=== PATIENT | male | born 1985 | race Two or more races ===

== ENCOUNTER 2024-02-09 07:35 | Emergency (ER) | payer MEDICAID, SELFPAY ==
[2024-02-09] VITALS (7 sets, daily range): BP systolic 116–130; BP diastolic 70–104; PULSE 91–128; RESP 16–28; TEMP 36.9–37.2; O2SAT 94–99; BMI 39.0
--- NOTE | 2024-02-09 07:43 | EKG_ITS ---
[facility] Test Date: 2024-02-09 Pat Name: WARREN ZULUAGA Department: Room: - Gender: Male Field Technician: : 1985 Requested By: ED Temporary Provider Order Number: [id number] Reading MD: ED Temporary Provider Measurements Intervals [place] Rate: 96 P: 30 MA: 165 QRS: 30 QRSD: 99 T: 40 QT: 354 QTc: 448 Interpretive Statements SINUS RHYTHM Compared to ECG 12/06/2021 10:53:56 No significant changes /store/S0/[id number]/ecg/[id number].pdf
--- NOTE | 2024-02-09 08:34 | PC.NURSE ---
PATIENT BIBA FROM HOME FOR FOR SEIZURES X 2 LASTING ABOUT 2 MIN PER ROOMMATE WHO FOUND HIM ON THE COUCH. PER EMS PATIENT WAS POST-ICTAL, A&O X 0, GCS 13, AND MISSED TAKING SEIZURE MED THIS WEEK. NKA WITH HX SEIZURES AND DIABETES. PATIENT IS RESTLESS AND CONTINUALLY COMPLAINING ABOUT HEADACHE.
[2024-02-09 09:02] LABS: Collection Type, Urine Clean Catch; RBC,Urine 0 /hpf (0-3); Squamous Epithelial Cell,Urine 0 /hpf (0-5)
[2024-02-09 09:03] LABS: Lactate (Lactic Acid) 5.3 mMol/L (0.4-2.0)
[2024-02-09 09:05] LABS: Basophils # (Auto) 0.1 Thou/mm3 (0.0-0.2); Basophils % (Auto) 0 % (0-2.5); Eosinophils # (Auto) 0.1 Thou/mm3 (0.0-0.5); Eosinophils % (Auto) 0 % (0-10); Hemoglobin 16.8 g/dL (13.5-16.0); Immature Granulocytes % (Auto) 1 % (0-0); Immature Granulocytes Auto 0.18 Thou/mm3 (0.00-0.00); Lymphocytes % (Auto) 5 % (10-50); Mean Corpuscular HGB Conc 34.3 g/dl (31.0-37.0); Mean Corpuscular Hemoglobin 29.8 pg (25.0-35.0); Mean Corpuscular Volume 87 fL (80-100); Monocytes % (Auto) 5 % (0-12); Neutrophils # (Auto) 18.2 Thou/mm3 (1.8-7.7); Neutrophils % (Auto) 89 % (37-80); Nucleated Red Blood Cell % 0 /100 WBC (0); Platelet Count 225 Thou/mm3 (140-440); RDW Standard Deviation 39.7 fL (35.1-43.9); Red Blood Count 5.64 Miln/mm3 (4.50-5.90); White Blood Count 20.5 Thou/mm3 (3.8-10.6)
--- NOTE | 2024-02-09 09:18 | EDNOTE_ITS ---
ED Seizures RME/HPI General Chief Complaint: Seizure Stated Complaint: POST SEIZURE Time Seen by Provider: 02/09/24 08:18 Arrival date/time: 02/09/24 07:35 RME / HPI RME / HPI Narrative: 38-year-old male with history of diabetes and seizures on Keppra presents to the emergency department with his mother after witnessed seizure. Mother reports patient had two seizures back to back lasting ~ 2 minutes. Mother states that he has been off his medications for an unknown known amount of time. She does not believe that he overdosed on any drugs and does not actively use IV drug. No documented trauma. Related Data Home Medications ?Medication ?Instructions ?Recorded ?Confirmed levetiracetam 750 mg tablet 1,500 mg PO BID 10/30/18 09/05/23 (Keppra) zonisamide 100 mg capsule 500 mg PO QDAY 04/22/21 09/05/23 lacosamide 200 mg tablet 1 tab PO DAILY 12/06/21 02/09/24 metformin 1,000 mg tablet 1 tab PO BID 12/06/21 09/05/23 Previous Rx's ?Medication ?Instructions ?Recorded ibuprofen 600 mg tablet 600 mg PO Q8H PRN pain #14 tabs 09/05/23 tamsulosin 0.4 mg capsule 0.4 mg PO QDAY #7 caps 09/05/23 Allergies Allergy/AdvReac Type Severity Reaction Status Date / Time acyclovir Allergy Severe Swelling Verified 09/05/23 12:03 pineapple Allergy Severe TONGUE Verified 09/05/23 12:03 SWELLING phenytoin Allergy Unknown UNKNOWN Verified 09/05/23 12:03 lorazepam AdvReac Mild Blister Verified 09/05/23 12:03 Review of Systems Review of Systems Narrative Review of Systems: Gen: No fever, no chills, no weight loss EYES: No discharge, no visual changes, no pain HEENT: No ear pain, no congestion, no sore throat PULM: No shortness of breath, no cough, no congestion CV: No chest pain, no dyspnea on exertion, no palpitations GI: No nausea, no vomiting, no diarrhea, no pain, no constipation : No frequency, no urgency,? no dysuria Musc/skel: No joint pain, no back pain Skin: No rash. Neuro: No weakness, no headache, +seizure Past Medical History Past Medical History NEUROLOGIC: Positive Neurological Disorders, Seizures and Epilepsy CARDIAC: Positive Hypercholesterolemia and Hypertension GENITOURINARY: Positive Kidney Stones ENDOCRINE: Positive Endocrine Disorders and Diabetes Mellitus Type 2 PSYCHO/SOCIAL: Positive Behavior Problems Social History SMOKING STATUS: Never smoker SUBSTANCE USE: marijuana (daily) ED Exam General General appearance: Present other (Patient lying in the bed, lying on his side. Able to answer questions.) Head Head exam: Present atraumatic and other (Next no external bleeding from external ears); Absent normocephalic or normal inspection Eye Eye exam: Present PERRL and other (No eye movement) ENT ENT exam: Present normal exam Neck Neck exam: Present other (Neck is supple) Chest Chest inspection: Present normal inspection and other (Nontender to touch) Respiratory Respiratory exam: Present normal lung sounds bilaterally; Absent respiratory distress, wheezes, stridor or accessory muscle use Cardiovascular Cardiovascular exam: Present regular rate and tachycardia; Absent normal rhythm Neurological Exam Neurological exam: Present alert, CN II-XII intact (No facial droop. No dysarthria. No aphasia following all commands) and other; Absent motor sensory deficit Skin Skin exam: Present warm, dry, intact and normal color; Absent rash Course Course Course Narrative: 1800: Patient was signed out to Dr. Bojorquez. Past medical, surgical, social and family history reviewed. Vitals and home medications reviewed. Results and treatment plan discussed. They will assume the care of the patient at this time and will follow the patient. Quality Measures none Orders Category Date Time Status EKG (ED ONLY) *Do not use* NOW Care 02/09/24 07:[address] head/brain wo con Stat Exams 02/09/24 10:06 Completed EKG (ED Only) Stat Exams 02/09/24 07:43 Draft CBC Stat Lab 02/09/24 08:20 Completed Comprehensive Metabolic Panel Stat Lab 02/09/24 08:20 Completed Drug Screen,Urine Stat Lab 02/09/24 08:20 Completed Lactate (Lactic Acid) Stat Lab 02/09/24 08:20 Completed Lactic Acid, 3 HR Stat Lab 02/09/24 12:13 Completed Urinalysis Stat Lab 02/09/24 08:20 Completed LORazepam [Ativan Inj] Med 02/09/24 09:59 Discontinued 1 mg IVP X1 ONE LORazepam [Ativan Inj] Med 02/09/24 09:49 Discontinued 2 mg .ROUTE .STK-MED ONE LORazepam [Ativan Inj] Med 02/09/24 09:52 Discontinued 2 mg IVP X1 ONE LORazepam [Ativan Inj] Med 02/09/24 09:58 Discontinued 2 mg IVP X1 ONE levETIRAcetam INJ [Keppra Inj] Med 02/09/24 09:52 Discontinued 1,000 mg IVP X1 ONE Reevaluation(s) Reevaluation #1: Patient began seizing, witnessed by myself and nursing staff. Was given a total of 3 mg of Ativan. Bedside glucose 179. Patient snoring loudly post seizure. Sister adds at baseline patient snored loudly at night. Time: 09:50 Vital Signs Vital signs: Vital Signs Temperature 98.4 F 02/09/24 07:53 Pulse Rate 107 H 02/09/24 07:53 Respiratory Rate 16 02/09/24 07:53 Blood Pressure 125/104 H 02/09/24 07:53 Pulse Oximetry (%) 95 02/09/24 07:53 Oxygen Delivery Method Room Air 02/09/24 07:53 Pulse ox is 95% on room air which is adequate. Seizure MDM Narrative MDM Narrative:: Differential diagnosis includes seizure disorder, noncompliance, dehydration, electrolyte abnormality, brain tumor, any other brain abnormality that may be exacerbating his seizure. On arrival to the emergency department the patient was lying on the side and talking to his sister. He was able to answer all questions to me. All labs ordered. At approximately 10 AM patient had a witnessed less than 2- minute tonic-clonic seizure. 3 mg of Ativan was given. No hypoxia. Patient is postictal. 1750: Patient is more awake however now reports that he is on multiple seizure medications. Patient with elevated lactate likely from seizure however on repeat is 4.0 after IV fluids. Pending callback from telemetry neuro for recommendations for further medication management. Discussed with the [facility] physician taking over Dr. Handy, who assumed care and final disposition of this patient. Patient data External records reviewed:: [facility] previous records (I reviewed previous ED visit on 11/10/2022 for seizure) and EMS form Clinical information provided by:: patient, EMS and family (Sister- adds to hpi ) Social determinants that could affect healthcare access:: none Patient has the following chronic illnesses:: Seizures, diabetes How is presenting disease/condition affected by chronic disease/condition?: exacerbated by Evaluation data The following diagnostics were reviewed and interpreted by me:: lab results, radiology exam(s) and EKG tracing(s) (Sinus rhythm, rate 96, no ST elevation or depression, normal intervals, QTc 408, no STEMI, no ischemia) Lab and/or radiology exams considered but not ordered:: None Interpretation Summary: Ordering Physician: Rosario Logan MD Date of Service: 02/09/24 Procedure(s): CT head/brain wo con Accession Number(s): [id number] cc: Tate Wilder MD; Dash Devine MD; Rosario Logan MD~ Examination: CT brain head without contrast. 2-D sagittal coronal reconstructions Date and time of exam:February 09, 2024 1022 hours INDICATIONS: Onset seizures today COMPARISON: 12/06/2021 CTDI: vol (mGy):61 DLP: (mGycm):1227 Technique: Multiple CT axial sections of the brain have been obtained, 5 mm slice thickness. Contrast has not been administered. 2-D sagittal, coronal reconstructions have been obtained Low dose protocols were performed. One or more of the following dose reduction techniques were used; automated exposure control, adjustment of the mA and/or KV according to patient size, use of iterative reconstruction technique. Findings: No significant ventricular enlargement. Old fracture medial wall right orbit Intra-axial or extra-axial hemorrhage density is not seen. No mass effect or midline shift Basal cisterns are not remarkable. Fourth ventricle is midline. Cranial vault intact. Impression: Negative for acute hemorrhage, mass effect or midline shift Consider elective brain MRI follow-up, pre and postcontrast, seizure protocol Dictated By: Dash Devine MD Signed By: <Electronically signed by Dash Devine MD in OV> 02/09/24 1103 Medications / Prescriptions Medications or Prescriptions considered but not ordered:: None Medication administrations:: Medication Administration History Discontinued Medications Levetiracetam (Levetiracetam Inj 100 Mg/Ml Vial 5ml) 1,000 mg IVP X1 ONE Stop: 02/09/24 09:53 Last Admin: 02/09/24 09:56 Dose: 1,000 mg Documented By: RD Lorazepam (Lorazepam 2 Mg/Ml Vial) 2 mg IVP X1 ONE Stop: 02/09/24 09:53 Last Admin: 02/09/24 09:54 Dose: 2 mg Documented By: ARPIT Lorazepam (Lorazepam 2 Mg/Ml Vial) Confirm Administered Dose 2 mg .ROUTE .STK- MED ONE Stop: 02/09/24 09:50 Last Admin: 02/09/24 10:00 Dose: Not Given Documented By: ARPIT Non-Admin Reason: Duplicate Medication on eMAR Lorazepam (Lorazepam 2 Mg/Ml Vial) 2 mg IVP X1 ONE Stop: 02/09/24 09:59 Last Admin: 02/09/24 10:00 Dose: Not Given Documented By: ARPIT Non-Admin Reason: Cancelled by Provider Lorazepam (Lorazepam 2 Mg/Ml Vial) 1 mg IVP X1 ONE Stop: 02/09/24 10:00 Last Admin: 02/09/24 10:01 Dose: 1 mg Documented By: ARPIT See above Consultations Consultation(s) initiated? (list below): No Diagnosis Seizure Differential Diagnosis: other (Seizure disorder, noncompliance, d ehydration, electrolyte abnormality, brain tumor) Most likely diagnosis given after review of the tests above:: Seizures Admission Indicated Admission indicated?: indicated Explain why admission is indicated or not indicated:: No final disposition plan at this time. Patient signout to the shift commander provider. Admission Request Was there a request for admission?: No Disposition Plan Disposition Plan: other (specify) (Patient signout to the shift commander provider.) Discharge Plan Plan Disposition Comment: Stable at signout Prescriptions/Referrals Prescriptions/Med Rec: No Action levetiracetam [Keppra] 750 mg Tablet 1,500 mg PO BID zonisamide 100 mg capsule 500 mg PO QDAY Patient Comments: take 3 capsules by mouth once daily metformin 1,000 mg tablet 1 tab PO BID Patient Comments: take 1 tablet by mouth twice a day WITH A MEAL lacosamide 200 mg tablet 1 tab PO DAILY Patient Comments: take 1 tablet by mouth twice a day tamsulosin 0.4 mg capsule 0.4 mg PO QDAY Qty: 7 0RF ibuprofen 600 mg tablet 600 mg PO Q8H PRN (Reason: pain) Qty: 14 0RF Referrals: Tate Wilder MD [Primary Care Provider] - In 1 week Problem List Clinical Impression: Non-compliance, Seizure disorder Patient/Caregiver Discharge Instructions Print Language: Yakut
[2024-02-09 09:30] LABS: Bilirubin,Urine Negative (Negative); Blood,Urine 2+ (Negative); Clarity,Urine Clear (Clear/Hazy); Glucose, Urine 3+ (Negative); Ketones,Urine Trace (Negative); Leukocyte Esterase,Urine Negative (Negative); Nitrite,Urine Negative (Negative); PH,Urine 5.5 (5.0-7.0); Protein,Urine 2+ (Neg - Trace); Specific Gravity,Urine 1.013 (1.001-1.035); Urobilinogen,Urine Negative mg/dL (0.0-1.0); WBC,Urine 2 /hpf (0-5)
[2024-02-09 09:31] LABS: Alanine Aminotransferase 59 U/L (10-49); Albumin, Serum 4.5 gm/dL (3.5-5.0); Albumin/Globulin Ratio 1.8 (1.2-2.2); Alkaline Phosphatase 108 U/L (46-116); Anion Gap 12 (7-16); Aspartate Amino Transferase 30 U/L (0-34); BUN/Creatinine Ratio 19 Ratio (12-20); Bilirubin,Total 0.3 mg/dL (0.3-1.2); Blood Urea Nitrogen 13 mg/dL (9-23); Calcium 9.2 mg/dL (8.3-10.6); Calcium (Corrected) 9.2 mg/dL (8.5-10.1); Carbon Dioxide 16.9 mMol/L (20.0-31.0); Chloride 108 mMol/L (98-107); Creatinine (Component) 0.7 mg/dL (0.6-1.3); Estimated Creatinine Clearance 190.4 mL/min (>60); Globulin 2.5 gm/dL (2.3-3.5); Glucose 202 mg/dL (74-106); Osmolality,Calculated 279 (275-295); Sodium 137 mMol/L (136-145); eGFR > 60 See Note
[2024-02-09 09:34] LABS: Amphetamine/Methamp Scrn,U Negative (Negative); Barbiturate Screen,Urine Negative (Negative); Benzodiazepines Screen,Urine Negative (Negative); Benzoylecgonine Screen, Ur Negative (Negative); Fentanyl Screen,Urine Negative (Negative); Opiate Screen,Urine Negative (Negative); THC Screen,Urine Positive (Negative)
[2024-02-09 09:37] LABS: Color,Urine Lt-Yellow (Lt Yel-Yel); Sperm,Urine Present
[2024-02-09] MEDS: LORazepam 2 MG/ML VIAL IVP (09:54)
[2024-02-09] MEDS: levETIRAcetam INJ 100 MG/ML VIAL 5ML 1000 MG IVP (09:56)
[2024-02-09] MEDS: LORazepam 2 MG/ML VIAL 1 MG IVP (10:01)
--- NOTE | 2024-02-09 10:06 | XR_ITS ---
Examination: CT brain head without contrast. 2-D sagittal coronal reconstructions Date and time of exam:February 09, 2024 1022 hours INDICATIONS: Onset seizures today COMPARISON: 12/06/2021 CTDI: vol (mGy):61 DLP: (mGycm):1227 Technique: Multiple CT axial sections of the brain have been obtained, 5 mm slice thickness. Contrast has not been administered. 2-D sagittal, coronal reconstructions have been obtained Low dose protocols were performed. One or more of the following dose reduction techniques were used; automated exposure control, adjustment of the mA and/or KV according to patient size, use of iterative reconstruction technique. Findings: No significant ventricular enlargement. Old fracture medial wall right orbit Intra-axial or extra-axial hemorrhage density is not seen. No mass effect or midline shift Basal cisterns are not remarkable. Fourth ventricle is midline. Cranial vault intact. Impression: Negative for acute hemorrhage, mass effect or midline shift Consider elective brain MRI follow-up, pre and postcontrast, seizure protocol
[2024-02-09 11:51] LABS: Reflex Lactate? Y
--- NOTE | 2024-02-09 18:34 | PD.EDADDENDU ---
Emergency Room Addendum <Radha Ramos - Last Filed: 02/09/24 19:22> Addendum Narrative: 1800: Care assumed from Dr. Logan, the previous shift emergency physician. Past medical, surgical, social and family history reviewed. Vitals and home medications reviewed. I will assume the care of the patient at this time. Please refer to the emergency department record for history and examination from initial visit.? Physical exam by me shows patient under no acute distress at this time. 1921: Patient remains clinically stable throughout the emergency department visit. Re-assessment at the time of disposition demonstrates that the patient is in no acute distress. We reviewed all the results, analysis, and treatment plans. Patient is amenable to discharge. Strict return precautions were outlined. Patient was discharged in stable condition. <Hank Bojorquez MD - Last Filed: 02/09/24 23:42> Addendum Narrative: 1800: Care assumed from Dr. Logan, the previous shift emergency physician. Past medical, surgical, social and family history reviewed. Vitals and home medications reviewed. I will assume the care of the patient at this time. Please refer to the emergency department record for history and examination from initial visit.? Patient remained stable, without further seizure-like activity. Patient has a normal neurologic exam on reevaluation. Patient is stable for discharge Physical exam by me shows patient under no acute distress at this time. 1921: Patient remains clinically stable throughout the emergency department visit. Re-assessment at the time of disposition demonstrates that the patient is in no acute distress. We reviewed all the results, analysis, and treatment plans. Patient is amenable to discharge. Strict return precautions were outlined. Patient was discharged in stable condition.
--- NOTE | 2024-02-09 18:45 | PC.NURSE ---
1000mg Tylenol administered to patient but unable to chart due to Dr. Damon still in chart.
[2024-02-09] MEDS: ACETAMINOPHEN 500 MG TABLET 1000 MG PO (19:14)
--- NOTE | 2024-02-09 19:15 | PC.NURSE ---
Assumed care of pt. Pt is tired but A&O x4, GCS 15, making good eye contact. Pt able to ambulate without assistance. No signs of distress at this time. Pt to be DC'd per MD.
== END 2024-02-09 19:55 | disposition home or self-care (01) ==
PROVIDERS: Emergency Medicine; Emergency Provider Emergency Medicine; PCP Family Medicine
DX: G40.909 Epilepsy, unspecified, not intractable, without status epilepticus (principal); Z91.199 Patient's noncompliance with other medical treatment and regimen due to unspecified reason; E78.00 Pure hypercholesterolemia, unspecified; I10 Essential (primary) hypertension
CPT/HCPCS: 36415; 70450; 80053; 80307; 81001; 83605; 85025; 93005; 96374; 96375; 99284; J1953; J2060; A9270

== ENCOUNTER 2024-05-17 09:14 | Emergency (ER) | payer MEDICAID, SELFPAY ==
[2024-05-17 09:16] VITALS: BP 123/79; PULSE 124; RESP 20; TEMP 37.2; O2SAT 95
[2024-05-17 09:17] VITALS: BMI 27.8
[2024-05-17 09:21] VITALS: BMI 34.9
--- NOTE | 2024-05-17 09:25 | PD.EDSEIZ ---
ED Seizures RME/HPI General Chief Complaint: Seizure Stated Complaint: SEIZURE Time Seen by Provider: 05/17/24 09:22 Arrival date/time: 05/17/24 09:14 RME / HPI RME / HPI Narrative: 38 year old male with history of seizures presents to the ED BIBA from home for seizure today. Per medics, seizure was witnessed by nephew and lasting ~ 1 minute. No falls or injuries reported. While in the ED patient complains of a headache which he states is normal for him. No other complaints or symptoms reported. Patient mentioned he is not compliant with his Keppra and last took last night. Denies fevers, chills, recent illness, cough. Related Data Home Medications ?Medication ?Instructions ?Recorded ?Confirmed levetiracetam 750 mg tablet 1,500 mg PO BID 10/30/18 09/05/23 (Keppra) zonisamide 100 mg capsule 500 mg PO QDAY 04/22/21 09/05/23 lacosamide 200 mg tablet 1 tab PO DAILY 12/06/21 02/09/24 metformin 1,000 mg tablet 1 tab PO BID 12/06/21 09/05/23 Previous Rx's ?Medication ?Instructions ?Recorded ibuprofen 600 mg tablet 600 mg PO Q8H PRN pain #14 tabs 09/05/23 tamsulosin 0.4 mg capsule 0.4 mg PO QDAY #7 caps 09/05/23 Allergies Allergy/AdvReac Type Severity Reaction Status Date / Time acyclovir Allergy Severe Swelling Verified 09/05/23 12:03 pineapple Allergy Severe TONGUE Verified 09/05/23 12:03 SWELLING phenytoin Allergy Unknown UNKNOWN Verified 09/05/23 12:03 lorazepam AdvReac Mild Blister Verified 09/05/23 12:03 Review of Systems Review of Systems Narrative Review of Systems: GEN: No fever, no chills, no weight loss EYES: No discharge, no visual changes, no pain HEENT: No ear pain, no congestion, no sore throat PULM: No shortness of breath, no cough, no congestion CV: No chest pain, no dyspnea on exertion, no palpitations GI: No nausea, no vomiting, no diarrhea, no pain, no constipation : No frequency, no urgency and no dysuria MUSC/SKEL No joint pain, no back pain SKIN: No rash PSYCH: No hallucinations, no depression HEME/LYMPH: No easy bleeding or bruising tendencies NEURO: No weakness, + headache, +seizure Past Medical History Past Medical History NEUROLOGIC: Positive Neurological Disorders, Seizures and Epilepsy CARDIAC: Positive Hypercholesterolemia and Hypertension GENITOURINARY: Positive Kidney Stones ENDOCRINE: Positive Endocrine Disorders and Diabetes Mellitus Type 2 PSYCHO/SOCIAL: Positive Behavior Problems Social History SMOKING STATUS: Never smoker SUBSTANCE USE: marijuana (daily) ED Exam Narrative Physical exam: GENERAL APPEARANCE: Well hydrated, well nourished, in no acute distress. VITALS: All vitals were reviewed and the pulse ox is 95% on room air which is normal according to my interpretation. HEENT: Normocephalic, atramatic, EOMI, EACs are patent. There is no bulge or retraction. Throat without erythema or exudate. Moist oromucosa. No jaundice NECK: Supple, no JVD or bruits. CARDIOVASCULAR: Heart regular without S3-S4 or murmur. No rubs or gallops. LUNGS/CHEST: Clear to auscultation bilaterally. No rales, rhonchi, or wheezing. Normal inspection. ABDOMEN: Soft, nontender, with normal bowel sounds. No pulsatile masses. No rebound, rigidity, or guarding. No incarcerated hernia. Normal inspection and palpation. EXTREMITIES: Normal inspection and palpation. No edema, clubbing, or cyanosis. Intact CSM SKIN: Warm and dry without rashes. Normal inspection. MUSCULOSKELETAL: Normal inspection. No gross deformity, full ROM all extremities NEURO: Alert and oriented x3. Cranial nerves II through XII grossly intact. There are no other motor or sensory deficits noted. PSYCHIATRIC: Normal mood and affect. No psychosis Course Quality Measures none Orders Category Date Time Status Saline [Insert IV] NOW Care 05/17/24 09:32 Active BMP [Basic Metabolic Panel] Stat Lab 05/17/24 10:07 Completed Drug Screen,Urine Stat Lab 05/17/24 15:04 Completed Acetaminophen Tab [Tylenol ES Tab] Med 05/17/24 09:31 Discontinued 1,000 mg PO X1 ONE Sodium Chloride 0.9% 1000 ml [Ns] 1,000 ml Med 05/17/24 16:41 Active IV 999 mls/hr levETIRAcetam INJ [Keppra Inj] Med 05/17/24 09:31 Discontinued 1,000 mg IVP X1 ONE levETIRAcetam INJ [Keppra Inj] Med 05/17/24 09:32 Discontinued 1,500 mg IVP X1 ONE Vital Signs Vital signs: Vital Signs Temperature 98.9 F 05/17/24 09:16 Pulse Rate 124 H 05/17/24 09:16 Respiratory Rate 20 05/17/24 09:16 Blood Pressure 123/79 05/17/24 09:16 Pulse Oximetry (%) 95 05/17/24 09:16 Oxygen Delivery Method Room Air 05/17/24 09:16 Seizure MDM Narrative MDM Narrative:: I, Valarie King, am scribing for and in the presence of Dr. Shin. BMP is showing a bicarb of 16 and BUN and creatinine are unremarkable. Anion gap is normal. Blood sugar is 213. Drug screen is positive for marijuana. 4:50 PM I put in an order for 1000 mL normal saline bolus for the acidosis bicarb being low. I believe this is just secondary to the dehydration there is no acute DKA. After the normal saline bolus, the patient can be going home. He is now alert awake oriented x 4 GCS of 15 and using his cellular phone contact his family members. He is talking well. No neurological deficit. No sign of trauma. Critical care time is approximately 35 minutes excluding any procedure. The high probability of sudden, clinically significant deterioration in the patient?s condition required the highest level of my preparedness to intervene urgently. The services I provided to this patient were to treat and/or prevent clinically significant deterioration. Services included the following: chart data review, reviewing nursing notes and/or old charts, documentation time, groundwater consultant collaboration regarding findings and treatment options, medication orders and management, direct patient care, vital sign assessments and ordering, interpreting and reviewing diagnostic studies and lab tests. Aggregate critical care time includes only time during which I was engaged in work directly related to the patient?s care, as described above, whether at bedside or elsewhere in the Emergency Department. It did not include time spent performing other reported procedures or the services of residents, students, nurses or physician assistants. Patient data External records reviewed:: [facility] previous records (I reviewed ED visit on 02/09/2024) and EMS form Clinical information provided by:: patient and EMS Social determinants that could affect healthcare access:: substance use (Marijuana ) Patient has the following chronic illnesses:: Seizures, noncompliance with medications How is presenting disease/condition affected by chronic disease/condition?: exacerbated by Evaluation data The following diagnostics were reviewed and interpreted by me:: lab results Lab and/or radiology exams considered but not ordered:: None Interpretation Summary: As noted above Medications / Prescriptions Medications or Prescriptions considered but not ordered:: None Medication administrations:: Medication Administration History Sodium Chloride (Ns) 1,000 mls @ 999 mls/hr IV .Q1H1M ONE Stop: 05/17/24 17:41 Discontinued Medications Acetaminophen (Acetaminophen 500 Mg Tablet) 1,000 mg PO X1 ONE Stop: 05/17/24 09:32 Last Admin: 05/17/24 09:47 Dose: 1,000 mg Documented By: ARPIT Levetiracetam (Levetiracetam Inj 100 Mg/Ml Vial 5ml) 1,000 mg IVP X1 ONE Stop: 05/17/24 09:32 Last Admin: 05/17/24 09:49 Dose: Not Given Documented By: ARPIT Non-Admin Reason: Cancelled by Provider Levetiracetam (Levetiracetam Inj 100 Mg/Ml Vial 5ml) 1,500 mg IVP X1 ONE Stop: 05/17/24 09:33 Last Admin: 05/17/24 09:49 Dose: 1,500 mg Documented By: ARPIT See above Consultations Consultation(s) initiated? (list below): No Diagnosis Seizure Differential Diagnosis: intractable seizure disorder, focal seizure, generalized seizure, epileptic seizure and status epilepticus Most likely diagnosis given after review of the tests above:: Seizure Admission Indicated Admission indicated?: not indicated Admission Request Was there a request for admission?: No Disposition Plan Disposition Plan: Discharge Discharge Attestation Discharge Attestation: The patient and all family members were given an opportunity to ask questions and understood the discharge instructions. Discharge instructions specifically effects, indications for sooner follow up or return to the emergency department, and the expected course of current diagnosis. Patient condition: Stable Discharge Plan Plan Patient Disposition: HOME (Self Care) Disposition Comment: Stable to go home Prescriptions/Referrals Prescriptions/Med Rec: No Action levetiracetam [Keppra] 750 mg Tablet 1,500 mg PO BID zonisamide 100 mg capsule 500 mg PO QDAY Patient Comments: take 3 capsules by mouth once daily metformin 1,000 mg tablet 1 tab PO BID Patient Comments: take 1 tablet by mouth twice a day WITH A MEAL lacosamide 200 mg tablet 1 tab PO DAILY Patient Comments: take 1 tablet by mouth twice a day tamsulosin 0.4 mg capsule 0.4 mg PO QDAY Qty: 7 0RF ibuprofen 600 mg tablet 600 mg PO Q8H PRN (Reason: pain) Qty: 14 0RF Referrals: Tate Wilder MD [Primary Care Provider] - In 1 week Problem List Clinical Impression: Recurrent seizures Patient/Caregiver Discharge Instructions Education Materials: ED Seizure, Recurrent (Adult) Additional Instructions: Caution: No driving. No diving. No ariana. No heavy equipments. Follow-up with your medical doctor for recheck and further care in 3 days. Return to nearest ER if condition worsens or if new symptoms develop. Continue your Keppra to prevent further seizure. Print Language: Bulgarian Stand Alone Forms: [facility] [facility] Info., Patient Portal Info Letter
[2024-05-17] MEDS: ACETAMINOPHEN 500 MG TABLET 1000 MG PO (09:47)
[2024-05-17] MEDS: levETIRAcetam INJ 100 MG/ML VIAL 5ML 1500 MG IVP (09:49)
[2024-05-17 10:14] VITALS: BP 122/84; PULSE 102; RESP 19; TEMP 36.7; O2SAT 93
[2024-05-17 10:28] LABS: Anion Gap 15 (7-16); BUN/Creatinine Ratio 14 Ratio (12-20); Blood Urea Nitrogen 13 mg/dL (9-23); Calcium 8.9 mg/dL (8.3-10.6); Carbon Dioxide 15.8 mMol/L (20.0-31.0); Chloride 108 mMol/L (98-107); Creatinine (Component) 0.9 mg/dL (0.6-1.3); Glucose 213 mg/dL (74-106); Osmolality,Calculated 283 (275-295); Potassium 3.8 mMol/L (3.4-5.1); Sodium 139 mMol/L (136-145); eGFR > 60 See Note
[2024-05-17 12:48] VITALS: BP 151/91; PULSE 73; RESP 17; TEMP 36.9; O2SAT 98
[2024-05-17 15:18] VITALS: BP 125/82; PULSE 69; RESP 17; TEMP 37.2; O2SAT 94
[2024-05-17 15:56] LABS: Amphetamine/Methamp Scrn,U Negative (Negative); Barbiturate Screen,Urine Negative (Negative); Benzodiazepines Screen,Urine Negative (Negative); Benzoylecgonine Screen, Ur Negative (Negative); Fentanyl Screen,Urine Negative (Negative); Opiate Screen,Urine Negative (Negative); THC Screen,Urine Positive (Negative)
[2024-05-17] MEDS: SODIUM CHLORIDE 0.9% 1000 ML 1,000 ML 999 ML IV (16:46)
[2024-05-17 17:18] VITALS: BP 132/82; PULSE 86; RESP 16; TEMP 37; O2SAT 98
== END 2024-05-17 18:10 | disposition home or self-care (01) ==
PROVIDERS: Emergency Provider Emergency Medicine; PCP Family Medicine
DX: G40.909 Epilepsy, unspecified, not intractable, without status epilepticus (principal)
CPT/HCPCS: 36415; 80048; 80307; 96361; 96374; 99284; J1953; J7030; A9270

== ENCOUNTER 2024-08-01 21:49 | Emergency (ER) | payer MEDICAID, SELFPAY ==
--- NOTE | 2024-08-01 21:50 | PD.EDSEIZ ---
ED Seizures RME/HPI General Chief Complaint: Seizure Stated Complaint: SEIZURES Time Seen by Provider: 08/01/24 21:53 Arrival date/time: 08/01/24 21:49 RME / HPI RME / HPI Narrative: Dr. Rashid?s Main ED Evaluation: 39yo male with a history of epilepsy BIBA from home presents to the ED for a chief complaint of seizures. Per EMS, patient had 4 seizures today, the last one being 20 minutes [employer]. Per EMS, sister noted the patient has been compliant with his medications. She endorsed to EMS that the patient does get agitated and combative after having a seizure. Full ROS is unobtainable due to the patient being uncooperative. At 2155, I spoke with the patient's sister, who states the patient is on Vimpat and metformin. Patient did take his medications today. Sister states she normally does not call EMS when the patient has seizures, but since she was not there, her nephew called 911. Related Data Home Medications ?Medication ?Instructions ?Recorded ?Confirmed levetiracetam 750 mg tablet 1,500 mg PO BID 10/30/18 09/05/23 (Keppra) zonisamide 100 mg capsule 500 mg PO QDAY 04/22/21 09/05/23 lacosamide 200 mg tablet 1 tab PO DAILY 12/06/21 02/09/24 metformin 1,000 mg tablet 1 tab PO BID 12/06/21 09/05/23 Previous Rx's ?Medication ?Instructions ?Recorded ibuprofen 600 mg tablet 600 mg PO Q8H PRN pain #14 tabs 09/05/23 tamsulosin 0.4 mg capsule 0.4 mg PO QDAY #7 caps 09/05/23 Allergies Allergy/AdvReac Type Severity Reaction Status Date / Time acyclovir Allergy Severe Swelling Verified 09/05/23 12:03 pineapple Allergy Severe TONGUE Verified 09/05/23 12:03 SWELLING phenytoin Allergy Unknown UNKNOWN Verified 09/05/23 12:03 lorazepam AdvReac Mild Blister Verified 09/05/23 12:03 Review of Systems Review of Systems Systems Reviewed: All systems reviewed, normal except as documented Past Medical History Past Medical History NEUROLOGIC: Positive Neurological Disorders, Seizures and Epilepsy; Negative Cerebrovascular Accident CARDIAC: Positive Hypercholesterolemia and Hypertension; Negative Cardiac Disorders or Congestive Heart Failure RESPIRATORY: Negative Chronic Obstructive Pulmonary Disease (COPD) or Asthma GASTROINTESTINAL: Negative Gastrointestinal Disorders GENITOURINARY: Positive Kidney Stones; Negative Genitourinary Disorders or Renal Disease REPRODUCTIVE: Negative Breast Cancer MUSCULOSKELETAL: Negative Musculoskeletal Disorders ENDOCRINE: Positive Endocrine Disorders and Diabetes Mellitus Type 2; Negative Diabetes Mellitus Type 1 HEMATOLOGIC: Negative Blood Disorders or Sickle Cell Disease PSYCHO/SOCIAL: Positive Behavior Problems OTHER HISTORY: Negative Cancer or Breast Cancer Social History SMOKING STATUS: Never smoker SUBSTANCE USE: marijuana (daily) ED Exam Narrative Physical exam: GENERAL APPEARANCE: alert and oriented x 4, has pressured speech and is shouting and arguing with EMS, well-developed, well-nourished, no acute distress VITALS: All vitals were reviewed and the pulse ox is % on room air, which is normal according to my interpretation. HEENT: Normocephalic, atraumatic; pupils equal, round, reactive to light; EOMI; mucous membranes pink, moist; oropharynx clear NECK: Supple LUNGS: CTABL; no wheezes, no rales, no rhonchi HEART: Tachycardic, regular rhythm; normal S1, S2; no murmurs ABDOMEN: non distended; normal BS; soft, no tenderness, no guarding, no rebound; no masses, no organomegaly, no hernia BACK: no CVA tenderness EXTREMITIES: atraumatic; no edema NEUROLOGIC: awake; alert and oriented x4; cranial nerves II-XII grossly intact; no focal sensory or motor deficits PSYCHIATRIC: agitated mood and affect SKIN: warm, dry, normal color; no rashes Course Quality Measures none Vital Signs Vital signs: Vital Signs Pulse Rate 114 H 08/01/24 22:01 Respiratory Rate 14 08/01/24 22:01 Blood Pressure 109/85 H 08/01/24 22:01 Pulse Oximetry (%) 97 08/01/24 22:01 Oxygen Delivery Method Room Air 08/01/24 22:01 Seizure MDM Narrative MDM Narrative:: Scribe Attestation: 08/01/24 Kaylee Ruffin am scribing for and in the presence of Dr. Rashid. 2200: Patient is refusing any diagnostics to be completed. He is AAOx4. Risks versus benefits were discussed with the patient and sister at bedside. Patient is educated to return to the ED if he has any concerns or any worsening symptoms. Patient is signing out AMA. Patient data External records reviewed:: [facility] previous records (Per chart review, patient was seen here on 05/17/24 for recurrent seizures.) Clinical information provided by:: EMS Social determinants that could affect healthcare access:: none Patient has the following chronic illnesses:: epilepsy, DM How is presenting disease/condition affected by chronic disease/condition?: caused by Evaluation data The following diagnostics were reviewed and interpreted by me:: EKG tracing(s) Lab and/or radiology exams considered but not ordered:: none Interpretation Summary: EKG done at 2148, sinus tachycardia, rate of 113, normal axis, no ectopy, no acute ischemia, according to my interpretation. Medications / Prescriptions Medications or Prescriptions considered but not ordered:: none Medication administrations:: none Consultations Consultation(s) initiated? (list below): No Diagnosis Seizure Differential Diagnosis: other (seizure postictal, breakthrough seizure, intoxication) Most likely diagnosis given after review of the tests above:: see clinical impression below Admission Indicated Admission indicated?: not indicated Admission Request Was there a request for admission?: No Disposition Plan Disposition Plan: other (specify) (Patient is signing out AMA.) Discharge Plan Plan Patient Disposition: Left Against Medical Advice Prescriptions/Referrals Prescriptions/Med Rec: No Action levetiracetam [Keppra] 750 mg Tablet 1,500 mg PO BID zonisamide 100 mg capsule 500 mg PO QDAY Patient Comments: take 3 capsules by mouth once daily metformin 1,000 mg tablet 1 tab PO BID Patient Comments: take 1 tablet by mouth twice a day WITH A MEAL lacosamide 200 mg tablet 1 tab PO DAILY Patient Comments: take 1 tablet by mouth twice a day tamsulosin 0.4 mg capsule 0.4 mg PO QDAY Qty: 7 0RF ibuprofen 600 mg tablet 600 mg PO Q8H PRN (Reason: pain) Qty: 14 0RF Problem List Clinical Impression: Breakthrough seizure Patient/Caregiver Discharge Instructions Print Language: Togolese
[2024-08-01 21:52] VITALS: PULSE 122; RESP 18; O2SAT 96; BMI 36.9
[2024-08-01 22:01] VITALS: BP 109/85; PULSE 114; RESP 14; O2SAT 97
--- NOTE | 2024-08-01 22:14 | PC.NURSE ---
patient gcs15, AAox4 states wanting to leave hospital patient says he has a history of seizures and took his meds. dr martinez and I encouraged patient to stay patient still refused but stated would return for any worsening symptoms sister willie at bedside
== END 2024-08-01 22:15 | disposition left against medical advice (07) ==
LOC: SERX 22:41
PROVIDERS: Emergency Provider Emergency Medicine
DX: G40.909 Epilepsy, unspecified, not intractable, without status epilepticus (principal)
CPT/HCPCS: 99281

== ENCOUNTER 2025-01-28 07:42 | Emergency (ER) | payer MEDICAID, SELFPAY ==
--- NOTE | 2025-01-28 07:45 | PD.EDSEIZ ---
ED Seizures RME/HPI General Chief Complaint: Seizure Stated Complaint: SEIZURE Time Seen by Provider: 01/28/25 07:56 Arrival date/time: 01/28/25 07:42 RME / HPI RME / HPI Narrative: See [facility] for Dr. Blank's HPI documentation. Related Data Home Medications ?Medication ?Instructions ?Recorded ?Confirmed levetiracetam 750 mg tablet 1,500 mg PO BID 10/30/18 09/05/23 (Keppra) zonisamide 100 mg capsule 500 mg PO QDAY 04/22/21 09/05/23 lacosamide 200 mg tablet 1 tab PO DAILY 12/06/21 02/09/24 metformin 1,000 mg tablet 1 tab PO BID 12/06/21 09/05/23 Previous Rx's ?Medication ?Instructions ?Recorded ibuprofen 600 mg tablet 600 mg PO Q8H PRN pain #14 tabs 09/05/23 tamsulosin 0.4 mg capsule 0.4 mg PO QDAY #7 caps 09/05/23 lacosamide 200 mg tablet (Vimpat) 200 mg PO BID #60 tabs 01/28/25 Allergies Allergy/AdvReac Type Severity Reaction Status Date / Time acyclovir Allergy Severe Swelling Verified 09/05/23 12:03 pineapple Allergy Severe TONGUE Verified 09/05/23 12:03 SWELLING phenytoin Allergy Unknown UNKNOWN Verified 09/05/23 12:03 lorazepam AdvReac Mild Blister Verified 09/05/23 12:03 Review of Systems Review of Systems Systems Reviewed: All systems reviewed, normal except as documented Past Medical History Past Medical History NEUROLOGIC: Positive Neurological Disorders, Seizures and Epilepsy CARDIAC: Positive Hypercholesterolemia and Hypertension GENITOURINARY: Positive Kidney Stones ENDOCRINE: Positive Endocrine Disorders and Diabetes Mellitus Type 2 PSYCHO/SOCIAL: Positive Behavior Problems Social History SMOKING STATUS: Unknown if ever smoked SUBSTANCE USE: marijuana (daily) ED Exam Narrative Physical exam: See [facility] for Dr. Blank's physical exam documentation. Course Quality Measures none Orders Category Date Time Status Bedside COVID-19 Antigen Test NOW Care 01/28/25 07:46 Active EKG (ED ONLY) *Do not use* NOW Care 01/28/25 07:48 Completed Bangura [Urinary Catheter, Remove] ONCE Care 01/28/25 09:32 Active Glucose [Bedside Blood Glucose] NOW Care 01/28/25 10:33 Active Saline [Insert IV] NOW Care 01/28/25 07:46 Active Straight [In and Out Catheter] X1 Care 01/28/25 07:[address] cervical spine wo con Stat Exams 01/28/25 07:[address] chest abdomen pelvis wo Stat Exams 01/28/25 07:[address] head/brain wo con Stat Exams 01/28/25 07:49 Completed EKG (ED Only) Stat Exams 01/28/25 07:48 Draft XR chest 1V portable Stat Exams 01/28/25 07:48 Completed ABG [Arterial Blood Gas] Stat Lab 01/28/25 08:51 Completed ABG [Arterial Blood Gas] Stat Lab 01/28/25 10:42 Completed Alcohol, Blood Medical Stat Lab 01/28/25 08:11 Completed BNP [B-Type Natriuretic Peptide] Stat Lab 01/28/25 08:11 Completed Beta Hydroxybutyrate Stat Lab 01/28/25 10:17 Completed Bilirubin,Direct Stat Lab 01/28/25 08:11 Completed Blood Culture (Lab) Stat Lab 01/28/25 10:17 Received C-Reactive Protein Stat Lab 01/28/25 08:11 Completed CBC Stat Lab 01/28/25 08:11 Completed CK [Creatine Kinase] Stat Lab 01/28/25 08:11 Completed CMP [Comprehensive Metabolic Panel] Stat Lab 01/28/25 08:11 Completed Drug Screen,Urine Stat Lab 01/28/25 08:05 Completed ESR [Sed Rate (ESR)] Stat Lab 01/28/25 10:17 Completed Hemoglobin A1C [Glycohemoglobin w (eAG)] Stat Lab 01/28/25 10:17 Completed Influenza A & B Rapid Panel Stat Lab 01/28/25 09:17 Completed Lactate (Lactic Acid) Stat Lab 01/28/25 10:17 Completed Lactic Acid, 3 HR Stat Lab 01/28/25 13:34 Completed Lipase Stat Lab 01/28/25 08:11 Completed Magnesium Stat Lab 01/28/25 08:11 Completed Procalcitonin Stat Lab 01/28/25 08:11 Completed TSH [Thyroid Stimulating Hormone] Stat Lab 01/28/25 08:11 Completed Troponin I Stat Lab 01/28/25 08:11 Completed UA, C/S IF [Urinalysis, C/S if Indicated] Stat Lab 01/28/25 08:05 Completed LORazepam [Ativan Inj] Med 01/28/25 07:51 Discontinued 2 mg .ROUTE .STK-MED ONE LORazepam [Ativan Inj] Med 01/28/25 07:51 Discontinued 2 mg IVP X1 ONE Lacosamide Ivp [Vimpat IVP] Med 01/28/25 07:47 Discontinued 200 mg IVP X1 ONE Ondansetron Inj [Zofran Inj] Med 01/28/25 07:47 Discontinued 4 mg IVP X1 ONE Ringers Lactated 1000 ml [Lactated Ringers] 1,000 ml Med 01/28/25 09:03 Discontinued IV 1,000 mls/hr Ringers Lactated 1000 ml [Lactated Ringers] 1,000 ml Med 01/28/25 11:18 Discontinued IV 500 mls/hr Sodium Bicarb 8.4% SYR Med 01/28/25 09:02 Discontinued 100 ml IV X1 ONE Sodium Chloride 0.9% 1000 ml [Ns] 1,000 ml Med 01/28/25 07:47 Discontinued IV 999 mls/hr levETIRAcetam INJ [Keppra Inj] Med 01/28/25 07:47 Discontinued 1,000 mg IVP X1 ONE Vital Signs Vital signs: Vital Signs Temperature 98.7 F 01/28/25 07:59 Pulse Rate 111 H 01/28/25 07:59 Respiratory Rate 20 01/28/25 07:59 Blood Pressure 172/84 H 01/28/25 07:59 Pulse Oximetry (%) 100 01/28/25 07:59 Oxygen Delivery Method Oxy Mask 01/28/25 07:59 Oxygen Flow Rate 15 01/28/25 07:59 Seizure MDM Narrative MDM Narrative:: This section includes all my notes and documentations, including HPI, PE, and ED course. Quoc Blank MD HPI: 39-year-old male here with multiple seizures noted by family at home. Family not present currently. Patient is in postictal state, can't obtain any history from the patient. Sister called who did not see the seizures today. She suspects noncompliance. ROS: Can't obtain from the patient due to current clinical condition. Physical Exam: General: In postictal state. Eyes:? Conjunctivae and lids clear.? EOMI.? PERRL. ENT:? No signs of head trauma. Neck:? Supple.? No tenderness. Heart:? RRR. Lungs:? No respiratory distress.? Decreased air movement.? No severe rhonchi, wheezing, rales.? Chest:? No tenderness. Abdomen:? Soft and nontender.? Normal bowel sounds.? No distension.? No rebound or guarding.? Back:? No tenderness.? Skin:? Warm and dry.? Neuro:? Cranial Nerves II-XII grossly intact.? No peripheral motor deficits. Musculoskeletal:? All major joints and bones are not tender with no limited ROM. I reviewed EMS notes. I reviewed all diagnostic test results: My interpretation of the EKG is: Sinus tachycardia (108 bpm) with nonspecific ST-T changes. My interpretation of the chest x-ray is: NAD My review of the CT cervical spine report is: No acute fracture My review of the CT chest/abdomen/pelvis report is NAD. My review of the CT head report is NAD. Blood/urine tests remarkable for WBC 21.2, Glu 289, LA 8.4. ABG showed pH 7.03, pCO2 34, and pHCO3 9. Covid/Influenza are negative. During the ED course, patient had another seizure. At this point, diagnoses include: Recurrent seizures Metabolic acidosis due to multiple seizures Treatment here included: IVF Ativan 2 mg IV Keppra 1000 mg IV Zofran 4 mg IV Vimpat 200 mg IV Sodium Bicarb 100 ml IV Significant improvement noted. Patient's mental status returned to baseline. Patient requested leaving. Discussed potential risks, including worsening and sudden . Patient understood the risks and is willing to take the risks. We couldn't change his mind. Recommended more outpatient follow-up. Based on my best medical judgment, made decision no further evaluation or treatment indicated at this time. Patient understands and agrees to the discharge instructions customized and printed, see below. Discharge Instructions from Dr. Blank printed for you: 1. You were treated today for multiple seizures. 2. Continue your current Keppra 1500 mg twice daily. 3. Increase your Lacosamide (Vimpat) to 200 mg twice daily, as prescribed, until cleared by your neurologist. 4. See your neurologist on 01/31/2025 for recheck and further care. At minimum, call the office and let them know what happened and ask for further instructions. 5. Seek immediate medical care with another seizure or with any concerns. Quoc Blank MD Patient data External records reviewed:: [facility] previous records and EMS form Clinical information provided by:: patient and EMS Social determinants that could affect healthcare access:: none Patient has the following chronic illnesses:: Seizures How is presenting disease/condition affected by chronic disease/condition?: exacerbated by Evaluation data The following diagnostics were reviewed and interpreted by me:: lab results, radiology exam(s) and EKG tracing(s) (My interpretation of the EKG is: Sinus tachycardia (108 bpm) with nonspecific ST-T changes. Quoc Blank MD) Lab and/or radiology exams considered but not ordered:: None Interpretation Summary: I reviewed all diagnostic test results: My interpretation of the EKG is: Sinus tachycardia (108 bpm) with nonspecific ST-T changes. My interpretation of the chest x-ray is: NAD My review of the CT cervical spine report is: No acute fracture My review of the CT chest/abdomen/pelvis report is NAD. My review of the CT head report is NAD. Blood/urine tests remarkable for WBC 21.2, Glu 289, LA 8.4. ABG showed pH 7.03, pCO2 34, and pHCO3 9. Covid/Influenza are negative. Medications / Prescriptions Medications or Prescriptions considered but not ordered:: None Medication administrations:: Medication Administration History Discontinued Medications Sodium Chloride (Ns) 1,000 mls @ 999 mls/hr IV .Q1H1M ONE Stop: 01/28/25 08:47 Last Infusion: 01/28/25 10:20 Dose: Infused Documented By: Admin: 01/28/25 08:09 Dose: 999 mls/hr Documented By: EF Lactated Ringer's (Lactated Ringers) 1,000 mls @ 1,000 mls/hr IV .Q1H ONE Stop: 01/28/25 10:02 Last Infusion: 01/28/25 10:20 Dose: Infused Documented By: Admin: 01/28/25 09:20 Dose: 1,000 mls/hr Documented By: EF Lactated Ringer's (Lactated Ringers) 1,000 mls @ 500 mls/hr IV .Q2H ONE Stop: 01/28/25 13:17 Last Infusion: 01/28/25 13:25 Dose: Infused Documented By: Admin: 01/28/25 11:25 Dose: 500 mls/hr Documented By: EF Lacosamide (Lacosamide Inj 200 Mg/20 Ml Vial) 200 mg IVP X1 ONE Stop: 01/28/25 07:48 Last Admin: 01/28/25 08:08 Dose: 200 mg Documented By: EF Levetiracetam (Levetiracetam Inj 100 Mg/Ml Vial 5ml) 1,000 mg IVP X1 ONE Stop: 01/28/25 07:48 Last Admin: 01/28/25 08:08 Dose: 1,000 mg Documented By: EF Lorazepam (Lorazepam 2 Mg/Ml Vial) 2 mg IVP X1 ONE Stop: 01/28/25 07:52 Last Admin: 01/28/25 07:51 Dose: 2 mg Documented By: EF Lorazepam (Lorazepam 2 Mg/Ml Vial) Confirm Administered Dose 2 mg .ROUTE .STK-MED ONE Stop: 01/28/25 07:52 Last Admin: 01/28/25 08:19 Dose: Not Given Documented By: EF Non-Admin Reason: Override Medication Ondansetron HCl (Ondansetron Inj 2 Mg/Ml Inj 2 Ml) 4 mg IVP X1 ONE; Protocol Stop: 01/28/25 07:48 Last Admin: 01/28/25 08:08 Dose: 4 mg Documented By: EF Sodium Bicarbonate (Sodium Bicarb Inj 8.4% Syr 50 Ml Syringe) 100 ml IV X1 ONE Stop: 01/28/25 09:03 Last Admin: 01/28/25 09:19 Dose: 100 ml Documented By: EF Treatment here included: IVF Ativan 2 mg IV Keppra 1000 mg IV Zofran 4 mg IV Vimpat 200 mg IV Sodium Bicarb 100 ml IV Consultations Consultation(s) initiated? (list below): No Diagnosis Seizure Differential Diagnosis: intractable seizure disorder, focal seizure, generalized seizure and epileptic seizure Most likely diagnosis given after review of the tests above:: Recurrent seizures Admission Indicated Admission indicated?: not indicated Explain why admission is indicated or not indicated:: With significant improvement and no condition needing emergent intervention, there was no indication for admission. Admission Request Was there a request for admission?: No Disposition Plan Disposition Plan: Discharge Discharge Attestation Discharge Attestation: The patient and all family members were given an opportunity to ask questions and understood the discharge instructions. Discharge instructions specifically effects, indications for sooner follow up or return to the emergency department, and the expected course of current diagnosis. Patient condition: Stable Discharge Plan Plan Patient Disposition: HOME (Self Care) Prescriptions/Referrals Prescriptions/Med Rec: New lacosamide [Vimpat] 200 mg tablet 200 mg PO BID Qty: 60 1RF No Action levetiracetam [Keppra] 750 mg Tablet 1,500 mg PO BID zonisamide 100 mg capsule 500 mg PO QDAY Patient Comments: take 3 capsules by mouth once daily metformin 1,000 mg tablet 1 tab PO BID Patient Comments: take 1 tablet by mouth twice a day WITH A MEAL lacosamide 200 mg tablet 1 tab PO DAILY Patient Comments: take 1 tablet by mouth twice a day tamsulosin 0.4 mg capsule 0.4 mg PO QDAY Qty: 7 0RF ibuprofen 600 mg tablet 600 mg PO Q8H PRN (Reason: pain) Qty: 14 0RF Referrals: No Primary/Family,Physician [Primary Care Provider] - In 1 week Problem List Clinical Impression: Recurrent seizures Patient/Caregiver Discharge Instructions Discharge Activity: activity as tolerated Education Materials: ED Seizure, Recurrent (Adult) Additional Instructions: Discharge Instructions from Dr. Blank printed for you: 1. You were treated today for multiple seizures. 2. Continue your current Keppra 1500 mg twice daily. 3. Increase your Lacosamide (Vimpat) to 200 mg twice daily, as prescribed, until cleared by your neurologist. 4. See your neurologist on 01/31/2025 for recheck and further care. At minimum, call the office and let them know what happened and ask for further instructions. 5. Seek immediate medical care with another seizure or with any concerns. Print Language: Hebrew Stand Alone Forms: [employer] Award Info., Patient Portal Info Letter
--- NOTE | 2025-01-28 07:48 | EKG_ITS ---
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
--- NOTE | 2025-01-28 07:48 | XR_ITS ---
EXAMINATION: AP chest single view TECHNIQUE: AP portable upright chest single view Date and time: January 28, 2025, 0837 hours, comparison February 10, 2022 INDICATIONS: Seizure today with shortness of breath FINDINGS: No significant cardiac enlargement. No aspiration pneumonia. Mild osteopenia IMPRESSION: No aspiration pneumonia
--- NOTE | 2025-01-28 07:48 | XR_ITS ---
Examination: CT chest, without intravenous contrast. CT abdomen, without intravenous contrast. CT pelvis, without intravenous contrast. 2-D sagittal and coronal reconstructions. 3-D reconstructions. Date and time of exam: January 28, 2025, 0835 hours INDICATIONS: Seizures today, patient fell with injury to the chest and abdomen, chest pain abdomen pain CTDI vol (mgy) 21.2 DLP (MGycm) 1716 Technique: Multiple CT images, 3.0 mm slice thickness, obtained chest, abdomen, pelvis, with the high-resolution 64 slice scanner.. Sagittal and coronal 2-D reconstructions are obtained. 3-D reconstructions Low dose protocols were performed. One or more of the following dose reduction techniques were used; automated exposure control, adjustment of the mA and/or KV according to patient size, use of iterative reconstruction technique. Findings: Thoracic aorta pulmonary arteries intact No hemopericardium No pneumothorax pulmonary contusion or hemothorax The manubrium and the body of the sternum intact No thoracic or lumbar compression fracture Alignment of the posterior spinous processes satisfactory Rib detail is obscured by patient motion No displaced rib fractures No visualized liver or splenic or renal laceration No perinephric hematoma 2 mm lower pole right renal calculus No gallstones No pancreatic or adrenal mass Aorta normal size, no free blood in the abdomen or pelvis Normal appendix Negative for pneumoperitoneum Urinary bladder is contracted around a Bangura catheter Sacral segments iliac bones and hips appear intact IMPRESSION: Thoracic aorta pulmonary arteries intact No hemopericardium, pneumothorax, pulmonary contusion or hemothorax No abdominal parenchymal laceration Abdominal aorta intact No free blood in the abdomen or pelvis. 2 mm lower pole nonobstructing right renal calculus Osseous structures intact
--- NOTE | 2025-01-28 07:48 | XR_ITS ---
Examination: CT cervical spine without contrast 2-D sagittal reconstructions 2-D coronal reconstructions 3-D reconstructions. Exam date and time: January 28, 2025, 0831 hours INDICATIONS: Seizures today, patient fell with injury to the neck, neck pain CTDI:vol (mGy) 20.1 DLP: (mGycm) 530 Technique: Multiple 2 mm axial sections of the cervical spine have been obtained. The coronal and sagittal reconstructions have been obtained. 3-D reconstructions have been obtained. Low dose protocols were performed. One or more of the following dose reduction techniques were used; automated exposure control, adjustment of the mA and/or KV according to patient size, use of iterative reconstruction technique. Findings: Axial sections demonstrate intact base of the skull. C1 exhibit satisfactory relationship to the odontoid. No acute cervical vertebral body fracture seen. Alignment posterior spinous processes satisfactory. Patient motion degrades scan image quality Impression: No acute cervical fracture.
--- NOTE | 2025-01-28 07:49 | XR_ITS ---
Examination: CT brain head without contrast. 2-D sagittal coronal reconstructions Date and time of exam: January 28, 2025, 0831 hours INDICATIONS: Seizures today, patient fell with injury to the head, head pain CTDI: vol (mGy): 16.2 DLP: (mGycm): 1242 Technique: Multiple CT axial sections of the brain have been obtained, 5 mm slice thickness. Contrast has not been administered. 2-D sagittal, coronal reconstructions have been obtained Low dose protocols were performed. One or more of the following dose reduction techniques were used; automated exposure control, adjustment of the mA and/or KV according to patient size, use of iterative reconstruction technique. Findings: No significant ventricular enlargement. Intra-axial or extra-axial hemorrhage density is not seen. No mass effect or midline shift Basal cisterns are not remarkable. Fourth ventricle is midline. Cranial vault intact. Old fracture medial wall right orbit Impression: Negative for acute hemorrhage, mass effect or midline shift
[2025-01-28] MEDS: LORazepam 2 MG/ML VIAL IVP (07:51)
[2025-01-28 07:55] VITALS: PULSE 142; RESP 20; O2SAT 98
[2025-01-28 07:59] VITALS: BP 172/84; PULSE 111; RESP 20; TEMP 37.1; O2SAT 100
[2025-01-28] MEDS: LACOSAMIDE INJ 200 MG/20 ML VIAL IVP (08:08)
[2025-01-28] MEDS: ONDANSETRON INJ 2 MG/ML INJ 2 ML 4 MG IVP (08:08)
[2025-01-28] MEDS: levETIRAcetam INJ 100 MG/ML VIAL 5ML 1000 MG IVP (08:08)
[2025-01-28] MEDS: SODIUM CHLORIDE 0.9% 1000 ML 1,000 ML 999 ML IV (08:09)
[2025-01-28 08:30] LABS: Collection Type, Urine Clean Catch; Squamous Epithelial Cell,Urine 0 /hpf (0-5)
[2025-01-28 08:35] LABS: Basophils # (Auto) 0.2 Thou/mm3 (0.0-0.2); Basophils % (Auto) 1 % (0-2.5); Eosinophils # (Auto) 0.4 Thou/mm3 (0.0-0.5); Eosinophils % (Auto) 2 % (0-10); Hematocrit 52.3 % (41.0-53.0); Hemoglobin 16.5 g/dL (13.5-16.0); Immature Granulocytes Auto 0.24 Thou/mm3 (0.00-0.00); Lymphocytes # (Auto) 6.0 Thou/mm3 (1.0-4.8); Lymphocytes % (Auto) 28 % (10-50); Mean Corpuscular HGB Conc 31.5 g/dl (31.0-37.0); Mean Corpuscular Hemoglobin 29.7 pg (25.0-35.0); Mean Corpuscular Volume 94 fL (80-100); Monocytes # (Auto) 1.0 Thou/mm3 (0.0-0.8); Monocytes % (Auto) 5 % (0-12); Neutrophils # (Auto) 13.4 Thou/mm3 (1.8-7.7); Neutrophils % (Auto) 63 % (37-80); Nucleated Red Blood Cell # 0.00 Thou/mm3 (0.00-0.00); Nucleated Red Blood Cell % 0 /100 WBC (0); Platelet Count 279 Thou/mm3 (140-440); RDW Standard Deviation 41.5 fL (35.1-43.9); Red Blood Count 5.56 Miln/mm3 (4.50-5.90); White Blood Count 21.2 Thou/mm3 (3.8-10.6)
[2025-01-28 08:47] LABS: Bilirubin,Urine Negative (Negative); Blood,Urine 1+ (Negative); Clarity,Urine Clear (Clear/Hazy); Color,Urine Colorless (Lt Yel-Yel); Culture Indicated,Urine Not Indicated; Glucose, Urine 1+ (Negative); Hyaline Casts,Urine < 1 /hpf (0-1); Ketones,Urine Trace (Negative); Leukocyte Esterase,Urine Negative (Negative); Nitrite,Urine Negative (Negative); PH,Urine 5.5 (5.0-7.0); Protein,Urine 2+ (Neg - Trace); RBC,Urine 1 /hpf (0-3); Specific Gravity,Urine 1.012 (1.001-1.035); Urobilinogen,Urine Negative mg/dL (0.0-1.0); WBC,Urine 2 /hpf (0-5)
[2025-01-28 08:56] LABS: Base Excess -21 (-3-3); HCO3 9 mEq/L (20-26); O2 Saturation 97 % (91-98); PCO2 34 mmHg (32.0-48.0); PO2 119 mmHg (83-108)
[2025-01-28 08:59] LABS: pH, Arterial 7.03 (7.35-7.45)
[2025-01-28 09:00] LABS: Allen Test Not Performed; Inspired O2, VO2 Liters 5 L/min; Puncture Site Right Brachial
[2025-01-28 09:16] LABS: Amphetamine/Methamp Scrn,U Negative (Negative); Barbiturate Screen,Urine Negative (Negative); Benzodiazepines Screen,Urine Negative (Negative); Benzoylecgonine Screen, Ur Negative (Negative); Fentanyl Screen,Urine Negative (Negative); Opiate Screen,Urine Negative (Negative); THC Screen,Urine Positive (Negative)
[2025-01-28 09:16] LABS: B-Type Natriuretic Peptide 56 pg/mL (0-100)
[2025-01-28] MEDS: Sodium Bicarb Inj 8.4% SYR 50 ML SYRINGE 100 ML IV (09:19)
[2025-01-28] MEDS: RINGERS LACTATED 1000 ML 1,000 ML IV (09:20)
[2025-01-28 09:39] LABS: Alanine Aminotransferase 27 U/L (10-49); Albumin, Serum 5.2 gm/dL (3.5-5.0); Albumin/Globulin Ratio 2.4 (1.2-2.2); Alcohol, Blood Medical < 3.0 mg/dL (0-10.0); Alkaline Phosphatase 139 U/L (46-116); Anion Gap 27 (7-16); Aspartate Amino Transferase 22 U/L (0-34); BUN/Creatinine Ratio 13 Ratio (12-20); Bilirubin,Direct < 0.1 mg/dL (0.0-0.3); Bilirubin,Total 0.2 mg/dL (0.3-1.2); Blood Urea Nitrogen 14 mg/dL (9-23); C-Reactive Protein < 0.5 mg/dL (0.0-0.9); Calcium 9.5 mg/dL (8.3-10.6); Calcium (Corrected) 9.5 mg/dL (8.5-10.1); Chloride 105 mMol/L (98-107); Creatine Kinase 168 U/L (34-171); Creatinine (Component) 1.1 mg/dL (0.6-1.3); Globulin 2.2 gm/dL (2.3-3.5); Glucose 289 mg/dL (74-106); Lipase 50 U/L (12-53); Magnesium 2.1 mg/dL (1.6-2.6); Osmolality,Calculated 294 (275-295); Potassium 3.8 mMol/L (3.4-5.1); Procalcitonin < 0.04 ng/ml (0.0-0.49); Sodium 142 mMol/L (136-145); Thyroid Stimulating Hormone 2.68 uIU/mL (0.55-4.78); Total Protein 7.4 gm/dL (5.7-8.2); Troponin I < 0.020 ng/mL (0.0-0.045); eGFR > 60 See Note
[2025-01-28 09:40] LABS: Carbon Dioxide < 10.0 mMol/L (20.0-31.0)
[2025-01-28 10:03] VITALS: BP 126/85; PULSE 117; RESP 18; TEMP 36.8; O2SAT 97
[2025-01-28 10:34] LABS: Beta Hydroxybutyrate 0.1 mmol/L (<0.6)
[2025-01-28 10:36] LABS: Influenza A Ag Negative; Influenza B Ag Negative
[2025-01-28 10:41] LABS: Glucose Estimated Average 128 mg/dL (80-131); Hemoglobin A1C 6.1 % Hgb (4.8-6.0)
[2025-01-28 10:47] LABS: Base Excess -10 (-3-3); HCO3 17 mEq/L (20-26); Inspired O2, VO2 Liters 4 L/min; O2 Saturation 98 % (91-98); PCO2 37 mmHg (32.0-48.0); PO2 110 mmHg (83-108); pH, Arterial 7.27 (7.35-7.45)
[2025-01-28 10:54] LABS: Allen Test Performed/OK; Puncture Site Right Radial
[2025-01-28 10:54] LABS: Lactate (Lactic Acid) 8.4 mMol/L (0.4-2.0)
[2025-01-28 11:02] LABS: Sed Rate (ESR) 7 mm/hr (0-15)
[2025-01-28] MEDS: RINGERS LACTATED 1000 ML 1,000 ML 500 ML IV (11:25)
[2025-01-28 12:28] VITALS: BP 126/79; PULSE 90; RESP 16; TEMP 36.9; O2SAT 99
[2025-01-28 13:25] LABS: Reflex Lactate? Y
[2025-01-28 14:04] LABS: Lactic Acid, 3 HR 2.8 mMol/L (0.4-2.0)
[2025-01-28 14:09] VITALS: BP 129/80; PULSE 91; RESP 17; TEMP 36.8; O2SAT 100
[2025-01-28 16:13] VITALS: BP 119/81; PULSE 95; RESP 20; TEMP 36.9; O2SAT 100
== END 2025-01-28 16:59 | disposition home or self-care (01) ==
PROVIDERS: Emergency Provider Emergency Medicine
DX: G40.909 Epilepsy, unspecified, not intractable, without status epilepticus (principal); F12.90 Cannabis use, unspecified, uncomplicated; Z79.84 Long term (current) use of oral hypoglycemic drugs
CPT/HCPCS: 36415; 36600; 51702; 70450; 71045; 71250; 72125; 74176; 80053; 80307; 80320; 81001; 82010; 82248; 82550; 82803; 83036; 83605; 83690; 83735; 83880; 84145; 84443; 84484; 85025; 85652; 86140; 87040; 87502; 87811; 93005; 96360; 96361; 96374; 96375; 99285; A4314; C9254; J1953; J2060; J2405; J7030; J7120; G0480